=== PATIENT | male | born 1960 | race Caucasian/White ===

== ENCOUNTER 2017-04-30 22:35 | Emergency (ER) | payer SELFPAY ==
[~2017-04-30] VITALS: Ht 177.8 cm; Wt 113.6 kg
[~2017-04-30 22:35] MED LIST: CIPRO 500MG TA500 MG PO; FLAGYL500 MG PO; LORTAB 5/500 501 TAB PO; NO HOME MEDICATIONS; NORCO 325 MG-51 TAB PO; PEN-VEE K500 MG PO; PREDNISONE20 MG PO; PRINIVIL10 MG PO; VICODIN 5/5001 UDTAB PO
[2017-04-30 22:41] VITALS: BP 136/82; TEMP 97.6
[2017-04-30 23:12] VITALS: PULSE 85
== END 2017-04-30 23:14 | disposition home or self-care (01) ==
LOC: COL.ER 22:35
DX: S20.361A Insect bite (nonvenomous) of right front wall of thorax, initial encounter (principal); S20.362A Insect bite (nonvenomous) of left front wall of thorax, initial encounter; S20.461A Insect bite (nonvenomous) of right back wall of thorax, initial encounter; I10 Essential (primary) hypertension; Z98.890 Other specified postprocedural states; W57.XXXA Bitten or stung by nonvenomous insect and other nonvenomous arthropods, initial encounter

== ENCOUNTER → 2021-10-29 | Outpatient (CLI) | payer BC | LOC: MHCPAIN 14:56 | DX: M47.816 Spondylosis without myelopathy or radiculopathy, lumbar region (principal); M54.50 Low back pain, unspecified; M53.3 Sacrococcygeal disorders, not elsewhere classified | CPT/HCPCS: G0463 ==

== ENCOUNTER → 2022-01-23 | Outpatient (CLI) | payer BC | LOC: MHCPAIN 14:50 | DX: M53.3 Sacrococcygeal disorders, not elsewhere classified (principal); M54.50 Low back pain, unspecified; M47.896 Other spondylosis, lumbar region | CPT/HCPCS: G0463 ==

== ENCOUNTER 2024-07-28 10:09 | Emergency (ER) | payer BC, MEDICARE ==
[~2024-07-28] VITALS: Ht 180.3 cm; Wt 122.7 kg
[2024-07-28 10:15] VITALS: TEMP 97.8
[2024-07-28] MEDS ORDERED: oxyCODONE/Acetaminophen 5-325 MG TAB PO ONE (11:15)
[2024-07-28 11:41] VITALS: BP 129/97; PULSE 82
== END 2024-07-28 11:47 | disposition home or self-care (01) ==
LOC: COL.ER 10:09
DX: M79.662 Pain in left lower leg (principal); Z96.652 Presence of left artificial knee joint